=== PATIENT | female | born 1965 | race Caucasian/White ===

== ENCOUNTER 2022-01-21 07:21 | Inpatient (IN) | payer MEDICAID, SELFPAY ==
[2022-01-21 07:33] VITALS: BP 126/82; PULSE 76; RESP 18; TEMP 37.1; O2SAT 99; BMI 27.1
--- NOTE | 2022-01-21 07:45 | ED_ITS ---
Documented by User: IGNACIO Cortes 01/21/22 13:28 HPI - Skin/Abscess/Foreign Bdy General: Chief complaint: Skin/Abscess/Foreign Body Stated complaint: Atibiotics arent working, pain, red streaks Time Seen by Provider: 01/21/22 07:23 Source: patient and family Mode of arrival: ambulatory Limitations: no limitations History of Present Illness: Patient is a 56-year-old female with a history of hidradenitis suppurative here for complaints of a flare (redness, warmth, lucia n) to her right axilla. Patient states she normally takes topical Clindamycin as well as oral Doxycycline to prevent flares. She states this regimen has worked for a long time and states she has not had a flare in many years. She states she began feeling symptomatic several days ago. She was seen at [facility] and placed on oral Clindamycin and Rifampin. She has been on these medications for 48 hours and doesn't feel like they are helping. MD complaint: abscess/boil Onset (ago): day(s) Tetanus up to date: yes Location: RUE (R axillary) Severity: severe Severity scale (1-10): 10 Quality: burning and stabbing Pain Consistency: constant Relieving factors: none Associated symptoms: Reports chills; Deny fever(s), nausea or vomiting Treatments prior to arrival: antibiotic Review of Systems Const: Reports: chills; Denies: fever(s), body aches, fatigue or malaise Card: Denies: chest pain Resp: Denies: dyspnea GI: Denies: nausea or vomiting Musc: Denies: neck pain, back pain, extremity pain or joint pain Skin/Breast: Reports: other (inflammation/redness/warmth to R axilla) Neuro: Denies: headache(s), numbness in extremities, weakness in extremities or sensory changes Physical Exam Const: COMMON NORMALS: no acute distress, patient oriented x3, no limitations and alert GENERAL APPEARANCE: cooperative and other (tearful at times) ORIENTATION/CONSCIOUSNESS: Yes awake, Yes oriented to person, Yes oriented to place and Yes oriented to time HENMT: COMMON NORMALS: normocephalic and atraumatic HEAD & SCALP: normal to inspection, normocephalic and atraumatic Resp: COMMON NORMALS: normal respiratory effort and clear to auscultation bilaterally AUSCULTATION: clear to auscultation bilaterally Cardio: COMMON NORMALS: regular rate and regular rhythm RATE: regular rate RHYTHM: regular rhythm Extremity: COMMON NORMALS: normal to inspection GENERAL: Yes normal exam except as noted Neuro: COMMON NORMALS: patient oriented x3, moves all extremities, no focal mo tor deficits and no sensory deficits noted SENSORIUM/ORIENTATION: Yes alert, Yes oriented to person, Yes oriented to place and Yes oriented to time Skin: NARRATIVE SKIN EXAM: patient has severe/stage III HS findings to her bilateral axillary regions with rope like scarring; there is active severe inflammation, redness, and warmth involving her R axilla-no fluctuant regions noted, small amount of clear d rainage noted Course Consultations: Consultation #1: Dr. Morgan-will admit to his service, recommends continuing IV vancomycin at this time Vital Signs: Vital signs: Vital Signs Temperature 97.8 F 01/21/22 08:04 Pulse Rate 77 01/21/22 09:14 Respiratory Rate 16 01/21/22 09:14 Blood Pressure 145/98 01/21/22 09:14 Pulse Oximetry 96 01/21/22 09:14 MDM - Skin/Abscess/Foreign Bdy Medicial Decision Making Patient is a nice 56-year-old female who unfortunately suffers from severe hydradenitis suppurativa. She is here in regards to a flare to her right axillary region. She has been on oral clindamycin and rifampin without any clinical response/improvement. US of the area does show a complex mass most consistent with an abscess. This is most likely not amendable to I&D at this time secondary to the amount of chronic scar tissue present as well as the radiologist commenting on the thick debris material located within the mass. Patient will be admitted to general surgeon Dr. Morgan for IV antibiotics and will monitor clinical response. Lab Data : 01/21/22 07:50 01/21/22 07:50 Radiology Impressions Soft Tissue Ultrasound 01/21/22 08:10 IMPRESSION: Complex mass in the RIGHT axilla measures 2.4 x 3.3 cm, most consistent with an abscess. Alternatively would be a necrotic neoplastic mass or lymph node if the clinical presentation does not support abscess. Laboratory Results WBC 14.9 10^3/uL (4.0-10.0) H 01/21/22 07:50 RBC 4.33 10^6/uL (4.1-5.3) 01/21/22 07:50 Hgb 12.5 g/dL (11.5-15.3) 01/21/22 07:50 Hct 38.6 % (37.0-47.0) 01/21/22 07:50 MCV 89.1 fl (81-99) 01/21/22 07:50 MCH 28.9 pg (28.0-34.0) 01/21/22 07:50 MCHC 32.4 g/dL (30.0-36.0) 01/21/22 07:50 RDW 15.5 % (12.1-15.1) H 01/21/22 07:50 Plt Count 332 10^3/cmm (130-400) 01/21/22 07:50 MPV 10.4 fL (7.4-10.4) 01/21/22 07:50 Neut % (Auto) 74.6 % 01/21/22 07:50 Lymph % (Auto) 14.8 % 01/21/22 07:50 [place] % (Auto) 8.2 % 01/21/22 07:50 Eos % (Auto) 1.6 % 01/21/22 07:50 Baso % (Auto) 0.5 % 01/21/22 07:50 Neut # (Auto) 11.13 10^3/uL (1.8-7.7) H 01/21/22 07:50 Lymph # (Auto) 2.2 10^3/uL (0.8-4.8) 01/21/22 07:50 [place] # (Auto) 1.2 10^3/uL (0.2-0.9) H 01/21/22 07:50 Eos # (Auto) 0.2 10^3/uL (0.0-0.8) 01/21/22 07:50 Baso # (Auto) 0.1 10^3/uL (0.0-0.1) 01/21/22 07:50 Nucleated RBC % (auto) 0 % 01/21/22 07:50 Nucleated RBCs # 0.0 /100WBC 01/21/22 07:50 Sodium 140 mmol/L (136-145) 01/21/22 07:50 Potassium 3.9 mmol/L (3.5-5.1) 01/21/22 07:50 Chloride 105 mmol/L (98-107) 01/21/22 07:50 Carbon Dioxide 24 mmol/L (22-29) 01/21/22 07:50 Anion Gap 14.9 (5-19) 01/21/22 07:50 BUN 7 mg/dL (6-20) 01/21/22 07:50 Creatinine 0.4 mg/dL (0.5-0.9) L 01/21/22 07:50 GFR Calculation 166.3 mL/min (90-130) H 01/21/22 07:50 Glucose 116 mg/dL (65-115) H 01/21/22 07:50 Calculated Osmolality 289 mOsm/kg (285-295) 01/21/22 07:50 Calcium 9.7 mg/dL (8.5-10.5) 01/21/22 07:50 Total Bilirubin 0.8 mg/dL (0.15-1.2) 01/21/22 07:50 AST 18 U/L (0-32) 01/21/22 07:50 ALT 13 U/L (0-33) 01/21/22 07:50 Alkaline Phosphatase 88 IU/L (35-105) 01/21/22 07:50 C-Reactive Protein 42.3 mg/L (0.0-4.9) H 01/21/22 07:50 Total Protein 7.8 g/dL (6.6-8.7) 01/21/22 07:50 Albumin 4.3 g/dL (3.5-5.2) 01/21/22 07:50 Globulin 3.5 g/dL (1.3-4.6) 01/21/22 07:50 Discharge Plan Discharge Patient Disposition: Admitted As Inpatient Clinical Impression: Axillary hidradenitis suppurativa, Abscess of axilla, right Condition: Stable Coding Level of Care Code ED Seal Delivery Vehicle Team Technician for [facility] Fwd Exam Detailed Documented by User: Ravindra Parminder NatalybalwinderDO 01/21/22 13:49 HPI - Skin/Abscess/Foreign Bdy General: Chief complaint: Skin/Abscess/Foreign Body Stated complaint: Atibiotics arent working, pain, red streaks Time Seen by Provider: 01/21/22 07:23 Course Vital Signs: Vital signs: Vital Signs Temperature 97.8 F 01/21/22 08:04 Pulse Rate 77 01/21/22 09:14 Respiratory Rate 16 01/21/22 09:14 Blood Pressure 145/98 01/21/22 09:14 Pulse Oximetry 96 01/21/22 09:14 MDM - Skin/Abscess/Foreign Bdy Medicial Decision Making Patient is a nice 56-year-old female who unfortunately suffers from severe hydradenitis suppurativa. She is here in regards to a flare to her right axillary region. She has been on oral clindamycin and rifampin without any clinical response/improvement. US of the area does show a complex mass most con sistent with an abscess. This is most likely not amendable to I&D at this time secondary to the amount of chronic scar tissue present as well as the radiologist commenting on the thick debris material located within the mass. Patient will be admitted to general surgeon Dr. Morgan for IV antibiotics and will monitor clinical response. Patient initially seen by IGNACIO Cortes seen and evaluated the patient reviewed her history reviewed the case with Pippa Bond as well as reviewing the chart. History in the chart is consistent with what patient gave me. She has reddened inflamed exquisitely tender right axilla with lymphatic streaking. No purulent drainage no pointing. Ultrasound reviewed deep moderate to small sized abscess. Given her history we will go ahead and admit this chris with Pippa Morgan will take patient has primary white count is elevated will start on Levaquin and manage pain control. Orders written. Lab Data : 01/21/22 07:50 01/21/22 07:50 Radiology Impressions Soft Tissue Ultrasound 01/21/22 08:10 IMPRESSION: Complex mass in the RIGHT axilla measures 2.4 x 3.3 cm, most consistent with an abscess. Alternatively would be a necrotic neoplastic mass or lymph node if the clinical presentation does not support abscess. Laboratory Results WBC 14.9 10^3/uL (4.0-10.0) H 01/21/22 07:50 RBC 4.33 10^6/uL (4.1-5.3) 01/21/22 07:50 Hgb 12.5 g/dL (11.5-15.3) 01/21/22 07:50 Hct 38.6 % (37.0-47.0) 01/21/22 07:50 MCV 89.1 fl (81-99) 01/21/22 07:50 MCH 28.9 pg (28.0-34.0) 01/21/22 07:50 MCHC 32.4 g/dL (30.0-36.0) 01/21/22 07:50 RDW 15.5 % (12.1-15.1) H 01/21/22 07:50 Plt Count 332 10^3/cmm (130-400) 01/21/22 07:50 MPV 10.4 fL (7.4-10.4) 01/21/22 07:50 Neut % (Auto) 74.6 % 01/21/22 07:50 Lymph % (Auto) 14.8 % 01/21/22 07:50 [place] % (Auto) 8.2 % 01/21/22 07:50 Eos % (Auto) 1.6 % 01/21/22 07:50 Baso % (Auto) 0.5 % 01/21/22 07:50 Neut # (Auto) 11.13 10^3/uL (1.8-7.7) H 01/21/22 07:50 Lymph # (Auto) 2.2 10^3/uL (0.8-4.8) 01/21/22 07:50 [place] # (Auto) 1.2 10^3/uL (0.2-0.9) H 01/21/22 07:50 Eos # (Auto) 0.2 10^3/uL (0.0-0.8) 01/21/22 07:50 Baso # (Auto) 0.1 10^3/uL (0.0-0.1) 01/21/22 07:50 Nucleated RBC % (auto) 0 % 01/21/22 07:50 Nucleated RBCs # 0.0 /100WBC 01/21/22 07:50 Sodium 140 mmol/L (136-145) 01/21/22 07:50 Potassium 3.9 mmol/L (3.5-5.1) 01/21/22 07:50 Chloride 105 mmol/L (98-107) 01/21/22 07:50 Carbon Dioxide 24 mmol/L (22-29) 01/21/22 07:50 Anion Gap 14.9 (5-19) 01/21/22 07:50 BUN 7 mg/dL (6-20) 01/21/22 07:50 Creatinine 0.4 mg/dL (0.5-0.9) L 01/21/22 07:50 GFR Calculation 166.3 mL/min (90-130) H 01/21/22 07:50 Glucose 116 mg/dL (65-115) H 01/21/22 07:50 Calculated Osmolality 289 mOsm/kg (285-295) 01/21/22 07:50 Calcium 9.7 mg/dL (8.5-10.5) 01/21/22 07:50 Total Bilirubin 0.8 mg/dL (0.15-1.2) 01/21/22 07:50 AST 18 U/L (0-32) 01/21/22 07:50 ALT 13 U/L (0-33) 01/21/22 07:50 Alkaline Phosphatase 88 IU/L (35-105) 01/21/22 07:50 C-Reactive Protein 42.3 mg/L (0.0-4.9) H 01/21/22 07:50 Total Protein 7.8 g/dL (6.6-8.7) 01/21/22 07:50 Albumin 4.3 g/dL (3.5-5.2) 01/21/22 07:50 Globulin 3.5 g/dL (1.3-4.6) 01/21/22 07:50 Discharge Plan Discharge Patient Disposition: Admitted As Inpatient Clinical Impression: Axillary hidradenitis suppurativa, Abscess of axilla, right Condition: Stable Coding Level of Care Code ED Seal Delivery Vehicle Team Technician for [facility] Fwd Exam Detailed
[2022-01-21 08:04] VITALS: BP 145/98; PULSE 66; RESP 18; TEMP 36.6; O2SAT 96
--- NOTE | 2022-01-21 08:10 | US_ITS ---
WS: [id number] ULTRASOUND SOFT TISSUES RIGHT axilla. HISTORY: HS; R axillary inflammation/possible abscess COMPARISON: None available. TECHNIQUE: 2-D and color Doppler imaging is submitted. There is a large complex heterogeneous mass in the RIGHT axilla in the area of pain and discomfort. T hick wall mass with peripheral increased vascularity. Central liquefaction with low-level echoes. Thi s mass measures 2.4 x 3.3 cm. There is adjacent subcutaneous edema. US/US soft tissue/extremity [id number] IMPRESSION: Complex mass in the RIGHT axilla measures 2.4 x 3.3 cm, most consistent with a n abscess. Alternatively would be a necrotic neoplastic mass or lymph node if t he clinical presentation does not support abscess.
[2022-01-21 08:18] LABS: Basophils # 0.1 10^3/uL (0.0-0.1); Basophils % 0.5 %; Eosinophils # 0.2 10^3/uL (0.0-0.8); Eosinophils % 1.6 %; Hematocrit 38.6 % (37.0-47.0); Hemoglobin 12.5 g/dL (11.5-15.3); Lymphocytes # 2.2 10^3/uL (0.8-4.8); Lymphocytes % 14.8 %; Mean Corpuscular HGB Conc 32.4 g/dL (30.0-36.0); Mean Corpuscular Hemoglobin 28.9 pg (28.0-34.0); Mean Corpuscular Volume 89.1 fl (81-99); Mean Platelet Volume 10.4 fL (7.4-10.4); Monocytes # 1.2 10^3/uL (0.2-0.9); Monocytes % 8.2 %; Neutrophils # 11.13 10^3/uL (1.8-7.7); Neutrophils % 74.6 %; Nucleated Red Blood Cells % 0 %; Platelet Count 332 10^3/cmm (130-400); Red Blood Count 4.33 10^6/uL (4.1-5.3); Red Cell Distribution Width 15.5 % (12.1-15.1); White Blood Count 14.9 10^3/uL (4.0-10.0)
[2022-01-21] MEDS: vancomycin 1,000 MG in sodium chloride 0.9% 250 ML 250 MG IV ×2 (08:23→17:43)
[2022-01-21 08:29] VITALS: RESP 18; O2SAT 96
[2022-01-21] MEDS: HYDROmorphone 1 mg/mL INJ 1 mL 0.5 MG IVP (08:29)
[2022-01-21] MEDS: ondansetron 2 mg/ML SDV 2 mL 4 MG IVP (08:30)
[2022-01-21 08:33] LABS: Alanine Aminotransferase 13 U/L (0-33); Albumin Level 4.3 g/dL (3.5-5.2); Alkaline Phosphatase 88 IU/L (35-105); Anion Gap 14.9 (5-19); Aspartate Amino Transferase 18 U/L (0-32); Blood Urea Nitrogen 7 mg/dL (6-20); C Reactive Protein 42.3 mg/L (0.0-4.9); Calcium 9.7 mg/dL (8.5-10.5); Carbon Dioxide 24 mmol/L (22-29); Chloride 105 mmol/L (98-107); Globulin 3.5 g/dL (1.3-4.6); Glomerular Filtration Rate 166.3 mL/min (90-130); Glucose 116 mg/dL (65-115); Osmolality Calculated 289 mOsm/kg (285-295); Potassium 3.9 mmol/L (3.5-5.1); Sodium 140 mmol/L (136-145); Total Bilirubin 0.8 mg/dL (0.15-1.2); Total Protein 7.8 g/dL (6.6-8.7)
[2022-01-21 09:14] VITALS: BP 145/98; PULSE 77; RESP 16; O2SAT 96
--- NOTE | 2022-01-21 14:03 | ECG_ITS ---
[facility] Test Date: 2022-01-21 Pat Name: Chloe Álvarez Department: Room: Gender: Female Dwarf Tree Grower: : 1965 Requested By: Ravindra Zurita Order Number: [id number] Mane MD: Azael Hall M.D. Measurements Intervals [place] Rate: 80 P: 75 OK: 135 QRS: 72 QRSD: 77 T: 52 QT: 357 QTc: 412 Interpretive Statements SINUS RHYTHM WITH SINUS ARRHYTHMIA MODERATE ST DEPRESSION [0.05+ mV ST DEPRESSION] No previous ECG available for comparison Electronically Signed On 01-21-2022 19:00:57 CDT by Azael Hall M.D. [id number]
--- NOTE | 2022-01-21 15:08 | PC.NURSE ---
report to VARSHA Bowles
[2022-01-21 15:23] VITALS: BMI 27.1
[2022-01-21] MEDS: ketorolac 30 mg/mL INJ 15 MG IVP ×2 (16:12→21:54)
[2022-01-21] MEDS: sodium chloride 0.9% 1,000 ML 100 ML IV (16:15)
--- NOTE | 2022-01-21 17:21 | P.HP_ITS ---
Providers/Chief Complaint Admitting Physician: Ulysses Morgan MD Chief Complaint: Right axillary cellulitis and abscess History of Present Illness Chloe Álvarez is a 56 year old female who states that she has been dealing with recurrent cellulitis and abscess of bilateral axilla since the s. Patient has had multiple surgeries on both axilla for drainage of abscess. Patient states that few days ago she started having increasing pain redness and swelling in the right axilla and was started on oral clindamycin and rifampin but the redness continued to worsen and therefore she presented to the ER for further evaluation. An ultrasound the ER showed a 3 cm fluid collection. Patient denies any fevers or chills and she has not had any drainage so far. Review of Systems General: Reports: 10 or more systems reviewed and unremarkable except in HPI a nd below Medications/Allergies Home Medications Medication Instructions Recorded Confirmed Last Taken Type albuterol sulfate 2.5 mg INHALATION Q4H PRN 01/21/22 01/21/22 Unknown History albuterol sulfate 90 mcg/actuation 2 puff INHALATION Q4H PRN 01/21/22 01/21/22 Unknown History aerosol inhaler aspirin 81 mg tablet,delayed 81 mg PO DAILY 01/21/22 01/21/22 Unknown History release clindamycin HCl 300 mg capsule 300 mg PO BID@00,12 01/21/22 01/21/22 01/21/22 00:00 History diclofenac sodium 75 mg 75 mg PO BID@06,18 01/21/22 01/21/22 Unknown History tablet,delayed release doxycycline hyclate 100 mg tablet 100 mg PO BID 01/21/22 01/21/22 01/17/22 History see pharmacy comment ondansetron 8 mg disintegrating 8 mg PO Q8H PRN 01/21/22 01/21/22 01/21/22 00:00 History tablet oxycodone-acetaminophen 5 mg-325 1 tab PO Q6H PRN 01/21/22 01/21/22 01/21/22 08:00 History mg tablet 1/2 tab rifampin 300 mg capsule 300 mg PO BID@06,18 01/21/22 01/21/22 Unknown History Allergies Allergy/AdvReac Type Severity Reaction Status Date / Time morphine Allergy Unknown Verified 01/21/22 08:25 PFSH Acute PFSH: Surgical History (Updated 01/21/22 @ 17:23 by Ulysses Morgan MD) S/P tonsillectomy and adenoidectomy Vitals/I&O/Wt Last Vital Signs Temp 97.8 F 01/21/22 08:04 Pulse 77 01/21/22 09:14 Resp 16 01/21/22 09:14 BP 145/98 01/21/22 09:14 Pulse Ox 96 01/21/22 09:14 01/21/22 01/21/22 01/21/22 06:59 14:59 22:59 Intake Total 250 / 250 Balance 250 / 250 Weight last 48 hrs Weight 158 lb Weight 158 lb Physical Exam Narrative: HEENT: Normocephalic Eye: Sclera /conjunctiva normal Respiratory and chest: Bilateral clear breath sounds on auscultation Cardiovascular: Normal S1 and S2 heart sounds Abdomen: Soft to palpation Neurological: Oriented to place person and time Skin: Intact, right axilla: Cellulitis extending down the right chest wall with tenderness, multiple areas of induration, scarring., No obvious area of fluctuance or drainage noted. Left axilla: Extensive scarring and sinus tracts involving the entire axilla but no evidence of cellulitis or drainage Data : 01/21/22 07:50 01/21/22 07:50 Micro: Microbiology 01/21/22 10:35 Blood Culture - Preliminary Blood SPECIMEN COLLECTED 01/21/22 07:50 Blood Culture - Preliminary Blood SPECIMEN COLLECTED A&P Assessment and plan (1) Axillary hidradenitis suppurativa: 56-year-old female with longstanding history of bilateral axillary hidradenitis suppurativa who presents with cellulitis and a small 3 cm abscess in the right axilla. She is hemodynamically stable and her WBC is 14.9. She is afebrile. Admit to the hospital for observation Regular diet Repeat labs tomorrow a.m. IV vancomycin Warm compress Status: Acute Attestations Medical Necessity Statement*: Cellulitis right axilla requiring inpatient IV antibiotics due to failed outpatient oral antibiotic therapy Coding Level of Care Code Acute Brand Specialist for [facility] Fwd Diagnoses Axillary hidradenitis suppurativa L73.2
[2022-01-21] MEDS: HYDROcodone-acetaminophen 5-325 mg Tablet 1 TAB PO (19:35)
[2022-01-21 20:09] VITALS: BP 135/92; PULSE 86; RESP 18; TEMP 36.8; O2SAT 99
[2022-01-21 23:59] VITALS: BP 146/87; PULSE 82; RESP 17; TEMP 36.7; O2SAT 98
[2022-01-22] MEDS: vancomycin 1,000 MG in sodium chloride 0.9% 250 ML 250 MG IV ×3 (00:03→15:34)
[2022-01-22] MEDS: HYDROcodone-acetaminophen 5-325 mg Tablet 1 TAB PO (01:48)
[2022-01-22] MEDS: ketorolac 30 mg/mL INJ 15 MG IVP ×4 (03:27→21:50)
[2022-01-22 03:33] VITALS: BP 117/74; PULSE 81; RESP 17; TEMP 36.7; O2SAT 96
[2022-01-22 05:31] LABS: Basophils # 0.1 10^3/uL (0.0-0.1); Basophils % 0.5 %; Eosinophils # 0.3 10^3/uL (0.0-0.8); Eosinophils % 2.2 %; Hematocrit 33.5 % (37.0-47.0); Hemoglobin 10.3 g/dL (11.5-15.3); Mean Corpuscular HGB Conc 30.7 g/dL (30.0-36.0); Mean Corpuscular Hemoglobin 28.7 pg (28.0-34.0); Mean Corpuscular Volume 93.3 fl (81-99); Mean Platelet Volume 10.3 fL (7.4-10.4); Monocytes # 1.1 10^3/uL (0.2-0.9); Neutrophils # 7.44 10^3/uL (1.8-7.7); Nucleated Red Blood Cells % 0 %; Platelet Count 298 10^3/cmm (130-400); Red Blood Count 3.59 10^6/uL (4.1-5.3); Red Cell Distribution Width 15.6 % (12.1-15.1); White Blood Count 11.8 10^3/uL (4.0-10.0)
[2022-01-22 06:00] LABS: Blood Urea Nitrogen 6 mg/dL (6-20); Carbon Dioxide 23 mmol/L (22-29); Chloride 109 mmol/L (98-107); Glomerular Filtration Rate 166.3 mL/min (90-130); Glucose 102 mg/dL (65-115); Osmolality Calculated 294 mOsm/kg (285-295); Sodium 143 mmol/L (136-145)
[2022-01-22 07:56] VITALS: BP 152/95; PULSE 92; RESP 14; TEMP 36.8; O2SAT 98
[2022-01-22] MEDS: sodium chloride 0.9% 1,000 ML 100 ML IV ×2 (08:24→15:37)
[2022-01-22 12:00] VITALS: BP 142/91; PULSE 87; RESP 12; O2SAT 98
--- NOTE | 2022-01-22 13:11 | PM.PN ---
Subjective Subjective: Patient feels a lot better, had purulent drainage from the axilla last night. She has been afebrile Vitals/I&O/Wt Last Vital Signs Temp 98.3 F 01/22/22 07:56 Pulse 92 01/22/22 07:56 Resp 14 01/22/22 07:56 BP 152/95 01/22/22 07:56 Pulse Ox 98 01/22/22 07:56 01/21/22 01/22/22 01/22/22 22:59 06:59 14:59 Intake Total 980 / 1230 250 / 1230 1250 / 1250 Balance 980 / 1230 250 / 1230 1250 / 1250 Weight last 48 hrs Weight 158 lb Weight 158 lb Physical Exam Narrative: right axilla: Drainage of purulent fluid but the cellulitis appears to have increased Data : 01/22/22 04:55 01/22/22 04:55 Micro: Microbiology 01/21/22 10:35 Blood Culture - Preliminary Blood NEGATIVE TO DATE 01/21/22 07:50 Blood Culture - Preliminary Blood NEGATIVE TO DATE A&P Assessment and plan (1) Axillary hidradenitis suppurativa: 56-year-old female with longstanding history of bilateral axillary hidradenitis suppurativa who presents with cellulitis and a small 3 cm abscess in the right axilla. She is hemodynamically stable and her WBC is 14.9. She is afebrile. Admit to the hospital for observation Regular diet, n.p.o. after midnight Repeat labs tomorrow a.m. Obtain gram stain and wound cultures today IV vancomycin, add clindamycin 300 mg IV 3 times daily Warm compress Status: Acute Attestations Medical Necessity Statement*: Patient will need 1 more of hospital stay for IV antibiotics since she failed outpatient oral antibiotic therapy Coding Level of Care Code Acute Route Delivery Clerk for [facility] Marissa Diagnoses Axillary hidradenitis suppurativa L73.2
[2022-01-22 15:45] LABS: Vancomycin Trough 16.8 ug/mL (10-15)
[2022-01-22 16:00] VITALS: BP 124/75; PULSE 81; RESP 14; TEMP 36.6; O2SAT 97
[2022-01-22 20:00] VITALS: BP 123/81; PULSE 83; RESP 19; TEMP 36.8; O2SAT 96
[2022-01-23] VITALS (11 sets, daily range): BP systolic 108–167; BP diastolic 64–96; PULSE 77–97; RESP 12–19; TEMP 36.2–37.2; O2SAT 94–98
[2022-01-23] MEDS: vancomycin 1,000 MG in sodium chloride 0.9% 250 ML 250 MG IV ×3 (00:01→15:58)
--- NOTE | 2022-01-23 00:45 | ECG_ITS ---
[facility] Test Date: 2022-01-22 Pat Name: Chloe Álvarez Department: Room: 255 Gender: Female Knuckle Bender: : 1965 Requested By: Kristal Ovalle Order Number: [id number] Mane MD: Josie Velasco M.D. Measurements Intervals [place] Rate: P: AK: QRS: QRSD: T: QT: QTc: Interpretive Statements SINUS RHYTHM WITH PAC'S/BLOCKED PAC'S WARNING: DATA QUALITY MAY AFFECT INTERPRETATION Compared to ECG 01/21/2022 07:57:01 Sinus arrhythmia no longer present ST (T wave) deviation no longer present Electronically Signed On 01-24-2022 6:10:26 CDT by Josie Velasco M.D. [id number]
--- NOTE | 2022-01-23 01:05 | PC.NURSE ---
Patient refused the x1 15mg ivp torodol dose that was ordered for report of intermittent sharp right sided chest pain. Patient states that she doesn't currently feel the chest pain so she does not want the medication. Patient educated on medication and pain, verbalized understanding but refused dose.
[2022-01-23] MEDS: sodium chloride 0.9% 1,000 ML 100 ML IV ×3 (01:51→23:04)
[2022-01-23 02:30] LABS: Troponin T (5th) Once 6 ng/L (0-10)
--- NOTE | 2022-01-23 04:04 | PC.NURSE ---
Patient refused scheduled dose of Ketorolac, patient states she is not in pain at this time and does not want it.
--- NOTE | 2022-01-23 06:10 | PC.SOCIAL ---
Late Entry for 01/22/2022 pt signed [employer] application documents for auth customer response representative.These were sent to Maosn Gold via email. Patient was appreciative.
--- NOTE | 2022-01-23 08:51 | P.PN_ITS ---
Subjective Subjective: Patient continues to have drainage and erythema and slight drainage but has spread further. She is afebrile Vitals/I&O/Wt Last Vital Signs Temp 98.3 F 01/23/22 04:00 Pulse 96 01/23/22 04:00 Resp 17 01/23/22 04:00 BP 108/64 01/23/22 04:00 Pulse Ox 94 01/23/22 04:00 01/22/22 01/23/22 01/23/22 22:59 06:59 14:59 Intake Total 2031.667 / 5071.667 1450 / 5071.667 250 / 250 Balance 2031.667 / 5071.667 1450 / 5071.667 250 / 250 Weight last 48 hrs Weight 174 lb 12.8 oz Weight 158 lb Physical Exam Narrative: right axilla: Drainage of purulent fluid but the cellulitis appears to have spread further Data : 01/22/22 04:55 01/22/22 04:55 Micro: Microbiology 01/21/22 10:35 Blood Culture - Preliminary Blood NEGATIVE TO DATE 01/21/22 07:50 Blood Culture - Preliminary Blood NEGATIVE TO DATE A&P Assessment and plan (1) Abscess of axilla, right: Status: Acute (2) Axillary hidradenitis suppurativa: 56-year-old female with longstanding history of bilateral axillary hidradenitis suppurativa who presents with cellulitis has now developed a draining abscess with further spread of cellulitis in spite of being on IV vancomycin and imipenem Plan for incision and drainage of abscess under MAC today Procedure, risks, benefits and alternatives have been discussed with the patient who wishes to proceed with surgery. Continue IV vancomycin and imipenem Warm compress Status: Acute Attestations Medical Necessity Statement*: Incision and drainage of abscess Coding Level of Care Code Acute Muffle Operator for [facility] Diagnoses Abscess of axilla, right L02.411 Axillary hidradenitis suppurativa L73.2
--- NOTE | 2022-01-23 10:23 | ANES.PREANE2 ---
Pre-Anesthetic Assessment Height/Weight: Height 1.63 m Weight 79.288 kg Temp Pulse Resp BP Pulse Ox 99.0 F 80 13 148/78 96 01/23/22 08:00 01/23/22 08:00 01/23/22 08:00 01/23/22 08:00 01/23/22 08:00 Preop Diagnosis: Right axillary abscess Operation Date: 01/23/22 14:45 Proposed Procedures p Incision And Drainage Right axillary abscess(Right) - Ulysses Morgan MD Familial anesthetic complications: None Was Beta Bacilio taken within 24 hours: N/A Was Clonidine taken within 24 hours: N/A Social No alcohol and No tobacco Exam alert, oriented x 3 and regular rate & rhythm Airway Submandibular: within normal limits Cervical ROM: within normal limits Mallampati: Class II Dentition: loose Comments: Comments: Poor dentitioin, multiple loose Pulmonary Chronic Obstructive Pulmonary Disease Metabolic Morbid Obesity Anesthetic Plan ASA status: 2 Anesthesia: Choice Medications/Allergies Home Medications Medication Instructions Recorded Confirmed Last Taken Type albuterol sulfate 2.5 mg INHALATION Q4H PRN 01/21/22 01/21/22 Unknown History albuterol sulfate 90 mcg/actuation 2 puff INHALATION Q4H PRN 01/21/22 01/21/22 Unknown History aerosol inhaler aspirin 81 mg tablet,delayed 81 mg PO DAILY 01/21/22 01/21/22 Unknown History release clindamycin HCl 300 mg capsule 300 mg PO BID@00,12 01/21/22 01/21/22 01/21/22 00:00 History diclofenac sodium 75 mg 75 mg PO BID@06,18 01/21/22 01/21/22 Unknown History tablet,delayed release doxycycline hyclate 100 mg tablet 100 mg PO BID 01/21/22 01/21/22 01/17/22 History see pharmacy comment ondansetron 8 mg disintegrating 8 mg PO Q8H PRN 01/21/22 01/21/22 01/21/22 00:00 History tablet oxycodone-acetaminophen 5 mg-325 1 tab PO Q6H PRN 01/21/22 01/21/22 01/21/22 08:00 History mg tablet 1/2 tab rifampin 300 mg capsule 300 mg PO BID@06,18 01/21/22 01/21/22 Unknown History Allergies Allergy/AdvReac Type Severity Reaction Status Date / Time morphine Allergy Unknown Verified 01/21/22 08:25 Current Medications Generic Name Dose Route Start Last Admin Trade Name Freq PRN Reason Stop Dose Admin Hydrocodone Bitart/Acetaminophen 1 tab 01/21/22 15:53 01/22/22 01:48 Hydrocodone-Acetaminophen 5-325 Mg Tablet PO 1 tab Q6H PRN Administration MODERATE PAIN Sodium Chloride 1,000 mls @ 100 mls/hr 01/21/22 15:18 01/23/22 01:51 Sodium Chloride 0.9% IV 100 mls/hr .Q10H JANI Administration Vancomycin HCl 1,000 mg/ 250 mls @ 250 mls/hr 01/21/22 16:30 01/23/22 08:41 Sodium Chloride IV Infused Q8H JANI Infusion Protocol Imipenem/Cilastatin Sodium 500 100 mls @ 200 mls/hr 01/22/22 13:15 01/23/22 06:53 mg/ Sodium Chloride IV Infused Q6H JANI Infusion Protocol Ketorolac Tromethamine 15 mg 01/21/22 16:00 01/23/22 09:08 Ketorolac 30 Mg/Ml Inj IVP 01/26/22 15:59 Not Given Q6H JANI PFSH Anesthesia Surgical History (Updated 01/21/22 @ 17:23 by Ulysses Morgan MD) S/P tonsillectomy and adenoidectomy Data Anesthesia : 01/22/22 04:55 01/22/22 04:55 Short CBC 01/22/22 Range/Units 04:55 WBC 11.8 H (4.0-10.0) 10^3/uL Hgb 10.3 L (11.5-15.3) g/dL Hct 33.5 L (37.0-47.0) % MCV 93.3 (81-99) fl Plt Count 298 (130-400) 10^3/cmm Neut % (Auto) 63.0 % Neut # (Auto) 7.44 (1.8-7.7) 10^3/uL BMP 01/22/22 04:55 Sodium 143 Potassium 4.0 Chloride 109 H Carbon Dioxide 23 BUN 6 Creatinine 0.4 L Glucose 102 Calcium 9.0 Cardiac Enzymes 01/23/22 Range/Units 01:32 Troponin T Gen 5 ng/L 6 (0-10) ng/L Microbiology 01/22/22 15:45 Gram Stain - Final Axilla 01/21/22 10:35 Blood Culture - Preliminary Blood NEGATIVE TO DATE 01/21/22 07:50 Blood Culture - Preliminary Blood NEGATIVE TO DATE Cardiac Studies: No Data to Display
[2022-01-23] MEDS: sodium chloride 0.9% 1,000 ML 30 ML IV (10:35)
[2022-01-23] MEDS: lidocaine 2% INJ 20 mL INJECTION (11:06)
--- NOTE | 2022-01-23 11:32 | PM.OP ---
Operative Report Date of procedure: January 23, 2022 Pre-op diagnosis: 1. Right axillary abscess 2. Hidradenitis suppurativa Post-op diagnosis: same Procedure done: Incision and drainage of right axillary abscess Specimens removed/disposition: Aerobic and anaerobic wound cultures Abscess wall Surgeon: Ulysses Morgan Anesthesia: MAC Condition: stable Disposition: PACU Procedure: The patient was taken to the operating room and the right axilla was prepped and draped in a sterile manner. She is currently on therapeutic IV antibiotics. Using a 15 blade a 5 cm incision was made at the site of fluctuance by extending the existing site of drainage. There was drainage of pus and loculations were taken down bluntly. Aerobic and anaerobic cultures were obtained. A piece of the abscess wall was sent for pathology. Hemostasis was ensured with cautery. The wound was irrigated with saline and packed with Kerlix gauze soaked in 2% lidocaine with 0.25% Marcaine. Sterile dressings were applied and the patient was transferred to recovery room in stable condition.
--- NOTE | 2022-01-23 14:58 | ANE.PACU2 ---
Inpatient post-anesthesia follow up: Airway intact: Yes Vital signs: Temperature 97.1 F Pulse Rate 77 Respiratory Rate 18 Blood Pressure 152/81 Pulse Oximetry 97 Oxygen Delivery Me thod Room Air Oxygen Flow Rate 6 Fraction of Inspir ed Oxygen Hydration adequate: Yes Nausea and vomiting: No Pain level: 2 Mental status: Baseline
[2022-01-23] MEDS: ketorolac 30 mg/mL INJ 15 MG IVP (16:00)
[2022-01-23] MEDS: HYDROcodone-acetaminophen 5-325 mg Tablet 1 TAB PO (19:46)
[2022-01-24] VITALS (8 sets, daily range): BP systolic 113–151; BP diastolic 76–95; PULSE 74–91; RESP 16–18; TEMP 36.6–36.9; O2SAT 95–98
[2022-01-24] MEDS: vancomycin 1,000 MG in sodium chloride 0.9% 250 ML 250 MG IV ×3 (00:25→15:27)
[2022-01-24] MEDS: HYDROcodone-acetaminophen 5-325 mg Tablet 1 TAB PO ×3 (03:48→20:45)
--- NOTE | 2022-01-24 03:49 | PC.NURSE ---
Patient requested pain pill, when informed that it was almost time for her scheduled dose of torodol, patient stated she did not want to take the iv pain medication and would rather have a prn hydrocodone/apap. Patient educated on both medications and verbalized understanding. Patient given prn medication and scheduled medication not given per patient request/refusal.
[2022-01-24 05:23] LABS: Basophils # 0.1 10^3/uL (0.0-0.1); Basophils % 0.9 %; Eosinophils # 0.4 10^3/uL (0.0-0.8); Eosinophils % 3.9 %; Hematocrit 33.2 % (37.0-47.0); Hemoglobin 10.4 g/dL (11.5-15.3); Lymphocytes # 2.8 10^3/uL (0.8-4.8); Lymphocytes % 29.3 %; Mean Corpuscular HGB Conc 31.3 g/dL (30.0-36.0); Mean Corpuscular Hemoglobin 28.7 pg (28.0-34.0); Mean Corpuscular Volume 91.5 fl (81-99); Mean Platelet Volume 9.8 fL (7.4-10.4); Monocytes # 0.9 10^3/uL (0.2-0.9); Monocytes % 9.4 %; Neutrophils # 5.29 10^3/uL (1.8-7.7); Neutrophils % 56.2 %; Nucleated Red Blood Cells % 0 %; Platelet Count 287 10^3/cmm (130-400); Red Blood Count 3.63 10^6/uL (4.1-5.3); Red Cell Distribution Width 15.5 % (12.1-15.1); White Blood Count 9.4 10^3/uL (4.0-10.0)
--- NOTE | 2022-01-24 05:31 | NUR.SHIFT ---
Up ad dafne in room without difficulty. Dressing placed by on 01/23/22 to right axilla remains dry and intact. Pain well controlled with PO medication. Patient declined all IV pain medication. IV antibiotics infused through left forearm IV which is patent and intact infusing NS at 100ml/hr. Vital signs stable this shift, afebrile.
[2022-01-24 05:57] LABS: Anion Gap 14.5 (5-19); Blood Urea Nitrogen 6 mg/dL (6-20); Calcium 8.1 mg/dL (8.5-10.5); Carbon Dioxide 21 mmol/L (22-29); Chloride 108 mmol/L (98-107); Glomerular Filtration Rate 231.8 mL/min (90-130); Glucose 87 mg/dL (65-115); Osmolality Calculated 287 mOsm/kg (285-295); Potassium 3.5 mmol/L (3.5-5.1); Sodium 140 mmol/L (136-145)
[2022-01-24] MEDS: sodium chloride 0.9% 1,000 ML 100 ML IV (08:23)
[2022-01-24] MEDS: aspirin 81 mg EC Tablet PO (09:23)
--- NOTE | 2022-01-24 11:00 | PC.CHAP ---
Pastoral Care Encounter/Spiritual Assessment Type of Contact [] Declined information and referral director visit [] Patient/Family/Request visit [] Outpatient visit [] Follow-up visit [] Physician referral [] Code/Alert [x] Routine visit [] Staff referral [] Actively dying [] Patient sleeping [] Family support [] [] Out of room [] Palliative care [] [] Receiving care in room [] Pre-surgical visit [] Trauma [] Long length of stay [] ICU visit [] Other: Relational/Emotional Strength [] Patient feels connected with others/family/visitors/staff [] Distress [] Loneliness/isolation [] Abandonment Spirituality of Patient [x] Person of Mindy [x] Attends Islam of their Mindy [x] Believes in Prayer [] Reads Bible or Methodist materials [] There are Spiritual issues to be addressed Printing Pressman Interventions [x] Prayer [x] Active listening [x] Non-anxious presence [] Spiritual/emotional support [] Crisis/trauma care [] Spiritual counseling [] Bereavement support [] Provided bereavement packet [] Provided Bible/devotional materials [] Provided toy/stuffed animal, coloring book to patient or family member [] Provided Communion [] Anointing/Lind[place] [] Salvation [x] Completed spiritual assessment [] Other: Impact on Illness or Injury [] Angry [] Fearful [] Anxious [] Often cries [] Exhaustion [] Unable to work [] Unable to attend orthodoxy [] Unable to walk/stand [] Unable to read [] Unable to drive [] Unable to eat/drink [] Unable to sleep [] Unable to be with family [] Patient intubated [] Other: Summary Time spent with patient 10 min
--- NOTE | 2022-01-24 11:50 | PM.PN ---
Subjective Subjective: patient did well overnight but had severe pain with dressig change even though she had [place] and Toradol Vitals/I&O/Wt Last Vital Signs Temp 97.9 F 01/24/22 11:30 Pulse 83 01/24/22 11:30 Resp 17 01/24/22 11:30 BP 145/93 01/24/22 11:30 Pulse Ox 97 01/24/22 11:30 01/23/22 01/24/22 01/24/22 22:59 06:59 14:59 Intake Total 1590 / 5304.5 1890 / 5304.5 1301.667 / 1301.667 Balance 1590 / 5304.5 1890 / 5304.5 1301.667 / 1301.667 Weight last 48 hrs Weight 177 lb 9.6 oz Weight 174 lb 12.8 oz Physical Exam Narrative: Right axillary wound: Erythema is improved, wound appears to have no significant necrotic tissue Data : 01/24/22 04:51 01/24/22 04:51 Micro: Microbiology 01/23/22 11:01 Gram Stain - Final Axilla Abscess Culture - Preliminary 01/22/22 15:45 Gram Stain - Final Axilla A&P Assessment and plan (1) Status post incision and drainage: 56-year-old female status post incision and drainage of right axillary abscess, had significant pain with dressing change. WBC is 9.4. Patient is afebrile. Patient does not have insurance and therefore cannot obtain home health. Her is unable to do dressing change at home. Continue IV antibiotics Ideally she should follow-up with wound care on discharge, she will again have an issue since she does not have insurance Awaiting wound cultures DC IV fluids Ambulate ad dafne. Lovenox for DVT prophylaxis Wet-to-dry daily dressing change Hopefully patient can be discharged home in the next 24 to 48 hours Status: Acute Attestations Medical Necessity Statement*: right axillary abscess requiring IV antibiotics and pain control Coding Level of Care Code Acute Log Handling Equipment Operator for Robinson Ann Diagnoses Status post incision and drainage Z98.890
--- NOTE | 2022-01-24 12:29 | PC.NURSE ---
Called to room to assist with ultrasound guided IV insertion. Attempted IV insertion to L AC without US. Pt tensed and jerked causing unsuccessful iv insertion. Using ultrasound, attempted 2nd IV insertion to LARA. Pt tensed once again and caused unsuccessful insertion attempt. This nurse moved the tourniquet higher on pt arm and pt c/o that it was pinching her. Tourniquet readjusted and pt became upset about tourniquet placement. This nurse placed L hand on her shoulder for therapeutic, non verbal communication to encourage her through process and instruct pt to attempt to relax and remain still. Pt the yelled at this nurse stating don't you manhandle me . Pt then yelled for to come into room. Pt also began yelling at this nurse, ordering the nurse to just do what you're told . This nurse then attempted to locate vein in hand with tourniquet with no success. Informed pt and family that the primary nurse would be notified and someone else would be consulted for IV placement. Notified charge nurse of need for placement and reported situation.
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
--- NOTE | 2022-01-24 23:20 | PC.NURSE ---
Pain 0 per FLACC scale as patient was resting in bed with eyes closed upon nurse entrance into room. Patient arouse and denies any needs at this time.
[2022-01-25] VITALS (7 sets, daily range): BP systolic 126–144; BP diastolic 73–87; PULSE 71–84; RESP 16–20; TEMP 36.7–36.9; O2SAT 95–98
--- NOTE | 2022-01-25 01:16 | PC.NURSE ---
Vancomycin Call placed to pharmacy regarding Vanc Trough needed prior to administering Vancomycin dose. Pharmacist Tami verified and instructed this nurse to administer current dose and an order for a Vanc trough will be placed to be drawn prior to next Vanc dose.
[2022-01-25] MEDS: vancomycin 1,000 MG in sodium chloride 0.9% 250 ML 250 MG IV ×3 (01:28→16:46)
--- NOTE | 2022-01-25 01:31 | PC.NURSE ---
Patient arouse and provided name and prior to Vancomycin administration. Left AC IV flushed with 10 ml NS and Vancomycin administration started.
[2022-01-25] MEDS: HYDROcodone-acetaminophen 5-325 mg Tablet 1 TAB PO ×3 (02:35→17:55)
[2022-01-25] MEDS: sodium chloride 0.9% (100 ml) 100 ML 25 ML (07:00)
[2022-01-25] MEDS: aspirin 81 mg EC Tablet PO (07:59)
[2022-01-25 08:13] LABS: Vancomycin Trough 17.4 ug/mL (10-15)
[2022-01-25] MEDS: ketorolac 30 mg/mL INJ 15 MG IVP (10:49)
--- NOTE | 2022-01-25 11:18 | P.PN_ITS ---
Subjective Subjective: Patient feels better, dressing changed today, no fevers or chills Medications: Reviewed: Yes Vitals/I&O/Wt Last Vital Signs Temp 98.3 F 01/25/22 07:36 Pulse 76 01/25/22 07:36 Resp 16 01/25/22 08:00 BP 131/84 01/25/22 07:36 Pulse Ox 96 01/25/22 08:00 01/24/22 01/25/22 01/25/22 22:59 06:59 14:59 Intake Total 1443.333 / 3895.000 1050 / 3895.000 690 / 690 Balance 1443.333 / 3895.000 1050 / 3895.000 690 / 690 Weight last 48 hrs Weight 176 lb 14.4 oz Weight 177 lb 9.6 oz Physical Exam Narrative: Right axillary wound: Erythema is improved, wound appears to have no significant necrotic tissue Data : 01/24/22 04:51 01/24/22 04:51 Micro: Microbiology 01/22/22 15:45 Gram Stain - Final Axilla Wound Culture - Preliminary 01/23/22 11:01 Gram Stain - Final Axilla Anaerobic Culture - Preliminary Abscess Culture - Preliminary A&P Assessment and plan (1) Status post incision and drainage: 56-year-old female status post incision and drainage of right axillary abscess, had significant pain with dressing change. WBC is 9.4. Patient is afebrile. Patient does not have insurance and therefore cannot obtain home health. Her is unable to do dressing change at home. Continue IV antibiotics Patient hopefully can go home tomorrow since dressing changes will be performed a GI Lab from Thursday Awaiting wound cultures Ambulate ad dafne. Wet-to-dry daily dressing change Hopefully patient can be discharged home in the next 24 to 48 hours Status: Acute Attestations Medical Necessity Statement*: 56-year-old female requiring 1 more night of hospital stay for wound care and dressing change Coding Level of Care Code Acute Financial Controller for Jackieg Fwruiz Diagnoses Status post incision and drainage Z98.890
[2022-01-26] VITALS: BP 130/85; PULSE 83; RESP 18; TEMP 37; O2SAT 96
[2022-01-26] MEDS: HYDROcodone-acetaminophen 5-325 mg Tablet 1 TAB PO ×3 (00:19→12:45)
[2022-01-26] MEDS: vancomycin 1,000 MG in sodium chloride 0.9% 250 ML 250 MG IV ×2 (00:19→08:47)
[2022-01-26 04:00] VITALS: BP 132/81; PULSE 84; RESP 18; TEMP 36.9; O2SAT 96
[2022-01-26 07:18] VITALS: BP 115/77; PULSE 77; RESP 16; TEMP 36.7; O2SAT 95
[2022-01-26 07:47] VITALS: PULSE 92; RESP 16; O2SAT 98
[2022-01-26] MEDS: aspirin 81 mg EC Tablet PO (08:48)
[2022-01-26 11:56] VITALS: BP 119/71; PULSE 79; RESP 18; O2SAT 96
[2022-01-26] MEDS: ketorolac 30 mg/mL INJ 15 MG IVP (12:07)
--- NOTE | 2022-01-26 12:44 | PM.PN ---
Subjective Subjective: Patient has been tolerating dressing change, afebrile, redness is improved Vitals/I&O/Wt Last Vital Signs Temp 98.1 F 01/26/22 07:18 Pulse 79 01/26/22 11:56 Resp 18 01/26/22 11:56 BP 119/71 01/26/22 11:56 Pulse Ox 96 01/26/22 11:56 01/25/22 01/26/22 01/26/22 22:59 06:59 14:59 Intake Total 830 / 2330 470 / 2330 830 / 830 Balance 830 / 2330 470 / 2330 830 / 830 Weight last 48 hrs Weight 176 lb 14.4 oz Physical Exam Narrative: Right axillary wound: Erythema is improved, wound appears to have no significant necrotic tissue Data : 01/24/22 04:51 01/24/22 04:51 Micro: Microbiology 01/23/22 11:01 Gram Stain - Final Axilla Anaerobic Culture - Preliminary Abscess Culture - Final 01/21/22 10:35 Blood Culture - Final Blood NO GROWTH AFTER 5 DAYS 01/21/22 07:50 Blood Culture - Final Blood NO GROWTH AFTER 5 DAYS 01/22/22 15:45 Gram Stain - Final Axilla Wound Culture - Preliminary A&P Assessment and plan (1) Status post incision and drainage: 56-year-old female status post incision and drainage of right axillary abscess, had significant pain with dressing change. WBC is 9.4. Patient is afebrile. Patient does not have insurance and therefore cannot obtain home health. Her is unable to do dressing change at home. SD home today Status: Acute Attestations Medical Necessity Statement*: SD home today Coding Level of Care Code Acute Life Skills Teacher for Jackieg Fwd Diagnoses Status post incision and drainage Z98.890
--- NOTE | 2022-01-26 12:45 | PM.DCS ---
Discharge Providers Date of Admission: 01/23/22 10:35 Date of Discharge: January 26, 2022 Attending Provider at Admission: Ulysses Morgan MD Attending Provider at Discharge: Ulysses Morgan MD Diagnoses at Discharge Discharge Diagnosis (1) Status post incision and drainage: Status: Acute Permanent problem details: Right axilla Reason for Visit Reason for Visit: Right axillary cellulitis and abscess Hospital Course Hospital Course Chloe Álvarez is a 56 year old female who states that she has been dealing with recurrent cellulitis and abscess of bilateral axilla since the s.? Patient has had multiple surgeries on both axilla for drainage of abscess.? Patient states that few days ago she started having increasing pain redness and swelling in the right axilla and was started on oral clindamycin and rifampin but the redness continued to worsen and therefore she presented to the ER for further evaluation.? An ultrasound the ER showed a 3 cm fluid collection.? Patient denies any fevers or chills and she has not had any drainage so far. Patient was subsequently admitted to the hospital for IV antibiotics and underwent incision and drainage of right axillary abscess on 01/23/2022. At time of discharge patient was tolerating daily dressing change, erythema had resolved and she was afebrile. Her blood cultures did not show any growth and therefore she was continued on clindamycin and rifampin that she was taking prior to hospitalization. Patient will undergo daily dressing change in GI Lab since is uncomfortable with doing dressing changes. Discharge Data Studies Completed and Pending Completed Studies During Hospitalization Category Date Time Status US soft tissue/extremity 61498 Urgent Ultrasound 01/21/22 08:10 Completed Pending at discharge Category Date Time Status Abscess Culture and Gram Stain Routine Lab 01/23/22 11:01 Results Anaerobic Culture Routine Lab 01/23/22 11:01 Results Wound Culture and Gram Stain Routine Lab 01/22/22 15:45 Results Pathology: Surgical [PTH] Routine Pth 01/23/22 11:11 Received Radiology Impressions Soft Tissue Ultrasound 01/21/22 08:10 IMPRESSION: Complex mass in the RIGHT axilla measures 2.4 x 3.3 cm, most consistent with an abscess. Alternatively would be a necrotic neoplastic mass or lymph node if the clinical presentation does not support abscess. Laboratory Results WBC 9.4 10^3/uL (4.0-10.0) 01/24/22 04:51 RBC 3.63 10^6/uL (4.1-5.3) L 01/24/22 04:51 Hgb 10.4 g/dL (11.5-15.3) L 01/24/22 04:51 Hct 33.2 % (37.0-47.0) L 01/24/22 04:51 MCV 91.5 fl (81-99) 01/24/22 04:51 MCH 28.7 pg (28.0-34.0) 01/24/22 04:51 MCHC 31.3 g/dL (30.0-36.0) 01/24/22 04:51 RDW 15.5 % (12.1-15.1) H 01/24/22 04:51 Plt Count 287 10^3/cmm (130-400) 01/24/22 04:51 MPV 9.8 fL (7.4-10.4) 01/24/22 04:51 Neut % (Auto) 56.2 % 01/24/22 04:51 Lymph % (Auto) 29.3 % 01/24/22 04:51 [place] % (Auto) 9.4 % 01/24/22 04:51 Eos % (Auto) 3.9 % 01/24/22 04:51 Baso % (Auto) 0.9 % 01/24/22 04:51 Neut # (Auto) 5.29 10^3/uL (1.8-7.7) 01/24/22 04:51 Lymph # (Auto) 2.8 10^3/uL (0.8-4.8) 01/24/22 04:51 [place] # (Auto) 0.9 10^3/uL (0.2-0.9) 01/24/22 04:51 Eos # (Auto) 0.4 10^3/uL (0.0-0.8) 01/24/22 04:51 Baso # (Auto) 0.1 10^3/uL (0.0-0.1) 01/24/22 04:51 Nucleated RBC % (auto) 0 % 01/24/22 04:51 Nucleated RBCs # 0.0 /100WBC 01/24/22 04:51 Sodium 140 mmol/L (136-145) 01/24/22 04:51 Potassium 3.5 mmol/L (3.5-5.1) 01/24/22 04:51 Chloride 108 mmol/L (98-107) H 01/24/22 04:51 Carbon Dioxide 21 mmol/L (22-29) L 01/24/22 04:51 Anion Gap 14.5 (5-19) 01/24/22 04:51 BUN 6 mg/dL (6-20) 01/24/22 04:51 Creatinine 0.3 mg/dL (0.5-0.9) L 01/24/22 04:51 GFR Calculation 231.8 mL/min (90-130) H 01/24/22 04:51 Glucose 87 mg/dL (65-115) 01/24/22 04:51 Calculated Osmolality 287 mOsm/kg (285-295) 01/24/22 04:51 Calcium 8.1 mg/dL (8.5-10.5) L 01/24/22 04:51 Total Bilirubin 0.8 mg/dL (0.15-1.2) 01/21/22 07:50 AST 18 U/L (0-32) 01/21/22 07:50 ALT 13 U/L (0-33) 01/21/22 07:50 Alkaline Phosphatase 88 IU/L (35-105) 01/21/22 07:50 Troponin T Gen 5 ng/L 6 ng/L (0-10) 01/23/22 01:32 C-Reactive Protein 42.3 mg/L (0.0-4.9) H 01/21/22 07:50 Total Protein 7.8 g/dL (6.6-8.7) 01/21/22 07:50 Albumin 4.3 g/dL (3.5-5.2) 01/21/22 07:50 Globulin 3.5 g/dL (1.3-4.6) 01/21/22 07:50 Vancomycin Trough 17.4 ug/mL (10-15) H 01/25/22 07:30 Vitals Last Vital Signs Temp 98.1 F 01/26/22 07:18 Pulse 79 01/26/22 11:56 Resp 18 01/26/22 11:56 BP 119/71 01/26/22 11:56 Pulse Ox 96 01/26/22 11:56 Discharge Plan Discharge Patient Disposition: Home Condition: Stable Prescriptions: New hydrocodone-acetaminophen 5-325 mg tablet 1 tab PO Q6H PRN (Reason: pain) Qty: 20 0RF Continued clindamycin HCl 300 mg capsule 300 mg PO BID@00,12 0RF albuterol sulfate 2.5 mg /3 mL (0.083 %) solution for nebulization 2.5 mg inhalation Q4H PRN (Reason: Shortness Of Breath) 0RF aspirin 81 mg Tablet,Delayed Release (Dr/Ec) 81 mg PO DAILY 0RF ondansetron 8 mg tablet,disintegrating 8 mg PO Q8H PRN (Reason: Nausea And Vomiting) 0RF oxycodone-acetaminophen 5-325 mg tablet 1 tab PO Q6H PRN (Reason: Pain) 0RF rifampin 300 mg capsule 300 mg PO BID@06,18 0RF Rx Instructions: for 7 days diclofenac sodium 75 mg tablet,delayed release (DR/EC) 75 mg PO BID@06,18 0RF Rx Instructions: for 7 days albuterol sulfate 90 mcg/actuation HFA aerosol inhaler 2 puff INHALATION Q4H PRN (Reason: Shortness Of Breath) 0RF doxycycline hyclate 100 mg tablet 100 mg PO BID 0RF Discharge Orders: Discharge Order (Routine); Ordered 01/26/22 Ordered By: Ulysses Morgan Other Ambulatory Orders: Miscellaneous Procedure (Order) Location: None Selected Ordered By: Ulysses Morgan Referrals: Ulysses Morgan MD [Physician] - 7-10 days (Please call Dr. Morgan's office to schedule a post procedure followup to be seen in 7 to 10 days. Thank you) OUTPATIENT SURGERY, [Staff Physician] - (You have been set up for wound care at outpatient services. Your appointment time is 07:30. Please check in at the medical office building on weekend days. Through the week, you may check in directly at surgical services. Please arrive at 07:15 for check-in. ) WOUND CARE CLINIC, [Staff Physician] - 4-7 days Patient Instructions: Hydrocodone/Acetaminophen (By mouth), Acute Wound Care (GEN), Hidradenitis Suppurativa (GEN), Opioid Safety Activity Restrictions/Additional Instructions: wet to dry once daily at GI lab starting tomorrow Discharge Attestations Time Spent in Discharge Care*: less than 30 min Quality Metrics Clinical Quality Measures [ No reported AMI, CVA or VTE this stay] Coding Level of Care Code Acute Chg FW DC note Diagnoses Status post incision and drainage Z98.890
== END 2022-01-26 13:00 | disposition home or self-care (01) | DRG 603 ==
LOC: ER 12:42 → MEDSURG 17:23
PROVIDERS: Internal Medicine; Physician Assistant; Admitting Provider Surgery; Emergency Provider Family Medicine; Visit Provider Surgery
PROC: 0X940ZX Drainage of Right Axilla, Open Approach, Diagnostic (ICD-10-PCS; principal; 2022-01-23 14:35)
DX: L02.411 Cutaneous abscess of right axilla (principal); L73.2 Hidradenitis suppurativa; J44.9 Chronic obstructive pulmonary disease, unspecified; Z79.82 Long term (current) use of aspirin
CPT/HCPCS: 36415; 76882; 80048; 80053; 80202; 84484; 85025; 86140; 87040; 87070; 87075; 87077; 87205; 88304; 93005; 94640; 96365; 96375; 99285; G0378; J0743; J1170; J1885; J2250; J2405; J2704; J3010; J3370; J3490; J7030; J7050

== ENCOUNTER 2022-01-29 07:32 | Outpatient (RCR) | payer MEDICAID, SELFPAY ==
[2022-01-27 07:35] VITALS: BP 148/96; PULSE 76; RESP 18; TEMP 36.6; O2SAT 100
--- NOTE | 2022-01-27 07:45 | PC.NURSE ---
Pt to GI lab for daily wet to dry dressing changes to right axilla wound. Procedure explained to patient and spouse. No questions voiced. Pt very anxious regarding dressing change due to previous pain with removal of packing. Pt stated she took her pain medication prior to coming in for procedure. Old dressing removed without difficulty. Pt tolerated removal of the packing poorly. Wound bed beefy red with good granulation tissue noted. Small amount serosang drainage noted. Wound packed wet to dry as ordered. Pt tolerated fair. at patient side to offer support.
--- NOTE | 2022-01-28 07:30 | PC.NURSE ---
Pt to GI lab for wet to dry dressing to right axilla. Old dressing removed with small amount serosang drainage noted. Wound bed beefy red with good granulation noted. Cleaned with NS. NS used to wet 2x2 and placed in wound bed. 4x4 and ABD pad placed over damp dressing. Secured with micropore tape. at pt side to offer support. Pt tolerated very well. Rated pain at 2 today. Both patient and very pleasant and easy to work with.
[2022-01-28 07:41] VITALS: BP 133/92; PULSE 78; RESP 18; TEMP 36.2; O2SAT 98
[2022-01-29 07:37] VITALS: BP 140/100; PULSE 80; RESP 18; TEMP 36.1; O2SAT 99
--- NOTE | 2022-01-29 07:45 | PC.NURSE ---
Pt to GI lab for wet to dry dressing change of right axilla wound. at pt side to offer support. Old dressing removed with small amount serosang drainage noted. Packing removed with patient tolerating very poorly. Pt states the wound mairano and stings following packing removal. Purpose of wet to dry dressing explained to patient. Pt states she did take her pain medication prior to arrival for dressing change. Wound bed beefy red with no slough noted. Good granulation apparent. Damp 2x2 gauze placed in wound bed and covered with folded 4x4 and ABD pad. Secured with Medipore tape. Pt did not tolerate dressing change very well today.
--- NOTE | 2022-01-29 14:28 | PC.NURSE ---
Pt set up at Wound Care Clinic with appointment 01/30/22 at 0830. Pt will miss dressing change in AM due to Wound Care appointment.
== END 2022-02-01 23:59 | disposition home or self-care (01) ==
LOC: GILAB 07:32
PROVIDERS: Visit Provider Surgery
DX: L02.411 Cutaneous abscess of right axilla (principal); L73.2 Hidradenitis suppurativa; Z98.890 Other specified postprocedural states

== ENCOUNTER → 2022-02-13 09:12 | Outpatient (BNVA) | payer MEDICAID, SELFPAY | PROVIDERS: Visit Provider Nurse Practitioner Family | DX: I96 Gangrene, not elsewhere classified (principal); L98.492 Non-pressure chronic ulcer of skin of other sites with fat layer exposed | CPT/HCPCS: 11042 ==

== ENCOUNTER → 2022-02-18 15:10 | Outpatient (BNVA) | payer MEDICAID, SELFPAY | PROVIDERS: Visit Provider Emergency Medicine | DX: I96 Gangrene, not elsewhere classified (principal); L98.492 Non-pressure chronic ulcer of skin of other sites with fat layer exposed | CPT/HCPCS: 11042 ==

== ENCOUNTER → 2022-02-20 09:16 | Outpatient (BNVA) | payer MEDICAID, SELFPAY | PROVIDERS: Visit Provider Nurse Practitioner Family | DX: I96 Gangrene, not elsewhere classified (principal); L98.492 Non-pressure chronic ulcer of skin of other sites with fat layer exposed | CPT/HCPCS: 11042 ==

== ENCOUNTER → 2022-02-27 09:16 | Outpatient (BNVA) | payer MEDICAID, SELFPAY | PROVIDERS: Visit Provider Nurse Practitioner Family | DX: I96 Gangrene, not elsewhere classified (principal); L98.492 Non-pressure chronic ulcer of skin of other sites with fat layer exposed | CPT/HCPCS: 11042 ==

== ENCOUNTER → 2022-03-06 09:58 | Outpatient (BNVA) | payer MEDICAID, SELFPAY | PROVIDERS: Visit Provider Nurse Practitioner Family | DX: L98.492 Non-pressure chronic ulcer of skin of other sites with fat layer exposed (principal); I96 Gangrene, not elsewhere classified | CPT/HCPCS: 87070; 87176; 87205 ==

== ENCOUNTER 2022-04-01 09:13 | Emergency (ER) | payer MEDICAID, SELFPAY ==
[2022-04-01] VITALS (10 sets, daily range): BP systolic 116–179; BP diastolic 69–97; PULSE 78–136; RESP 12–21; TEMP 36.7–36.9; O2SAT 95–99; BMI 31.7
--- NOTE | 2022-04-01 11:08 | US_ITS ---
WS: [id number] ULTRASOUND SOFT TISSUES LEFT axilla. HISTORY: abscess - L axilla COMPARISON: None available. TECHNIQUE: 2-D and color Doppler imaging is submitted. There is a complex superficial mass in the LEFT axilla. There is wall thickening with complex fluid i nfiltrating the soft tissues. There is increased vascularity. This elongated complex mass measures 5. 2 x 1.0 cm and most consistent with an abscess. US/US soft tissue/extremity 22764 IMPRESSION: Complex collection in the LEFT axilla consistent with an abscess.
--- NOTE | 2022-04-01 11:24 | ED_ITS ---
HPI - Wound/Laceration General: Chief Complaint: Wound/Laceration Stated Complaint: sent over for wound care Time Seen by Provider: 04/01/22 09:19 Source: patient Mode of arrival: ambulatory Limitations: no limitations History of Present Illness: 56-year-old female presents emergency room from wound care clinic. She has had difficulty with hidradenitis in the past she had recently had one in the right axilla that was incised and drained she has 1 that spontaneously started draining in the last she has some localized redness erythema no fever sweats or chills last few days she has been on some Bactrim seems to have been increasing in area around the wound. Time she arrived here she has ABD dressings on both axilla the one on the left has minimal drainage from it unable to express any drainage 1 on the right she has not to let us remove. Onset (ago): minute(s) Location: scalp Patient tetanus UTD: Yes Associated symptoms: Reports pain; Denies chills, fever(s), foreign body sensation, inability to move, nausea, numbness, syncope or vomiting Treatments prior to arrival: bandage and other (Oral antibiotics) Review of Systems Const: Denies: fever(s) or chills ENMT: Denies: throat pain, ear or mastoid pain, nasal discharge or nasal con gestion Card: Denies: chest pain, palpitations, irregular heart rhythm, edema or syncope Resp: Denies: dyspnea, productive cough or non-productive cough GI: Denies: nausea or vomiting : Denies: flank pain, difficulty voiding, dysuria, urinary frequency or urinary urgency Skin/Breast: Denies: rash or pruritus FORMERLY [facility], 1928–1983 ED PFSH: Surgical History S/P tonsillectomy and adenoidectomy Status post incision and drainage (01/23/22) Right axilla Social History Smoking and tobacco status: former smoker Physical Exam Const: ORIENTATION/CONSCIOUSNESS: Yes awake, Yes oriented to person, Yes oriented to place and Yes oriented to time HENMT: COMMON NORMALS: normocephalic, atraumatic and hearing grossly normal bilaterally HEAD & SCALP: normocephalic and atraumatic Neck/C-Spine: COMMON NORMALS: no JVD Resp: COMMON NORMALS: normal respiratory effort, No retractions, No use of a ccessory muscles and clear to auscultation bilaterally AUSCULTATION: clear to auscultation bilaterally Cardio: COMMON NORMALS: no JVD, regular rate, regular rhythm and No murmurs present (Cardio) RATE: regular rate RHYTHM: regular rhythm GI: COMMON NORMALS: Soft to palpation and No hepatosplenomegaly present AUSCULTATION: Yes normoactive bowel sounds PALPATION: Yes Soft to palpation, No Tenderness to palpation present (GI), No Guarding due to palpation present (GI) and Yes No hepatosplenomegaly present Extremity: COMMON NORMALS: normal to inspection, capillary refill normal, no clubbing, cyanosis or edema, no calf tenderness and no pedal edema Neuro: SENSORIUM/ORIENTATION: Yes oriented to person, Yes oriented to place and Yes oriented to time Skin: NARRATIVE SKIN EXAM: Significant scarring in both axilla from what appears to be previous hidradenitis. Looks like the area in the left has been incised there is an open wound to the mucousy eschar overlying it is very slightly indurated there is localized erythema without induration. Unable to express any drainage with palpation no apparent fluctuant areas. Limited exam on the right patient with not allow any further exam initially did not even want the bandage removed. Procedures Abscess I/D Side (if applicable): left Sedation/analgesia: fentanyl and other (Fentanyl and Ativan) Technique: incised with #11 blade Amount of fluid expressed (mL): 3 Packing used?: plain Procedural Sedation Indication: incision and drainage of abscess Fentanyl: IV Fentanyl dose (mcg): 50 Ketamine dose (mg): 200 Patient Tolerated Procedure: well Complications: none Additional Comments: Is a cannula oxygen was applied prior to start procedure patient tolerated well and hypoxia recovered without incident Course Vital Signs: Vital signs: Vital Signs Temperature 98.4 F 04/01/22 17:22 Pulse Rate 89 04/01/22 17:22 Respiratory Rate 16 04/01/22 17:22 Blood Pressure 131/81 04/01/22 17:22 Pulse Oximetry 97 04/01/22 17:22 MDM - Wound/Laceration Medical Decision Making Small amount of fluid drained on incision. There is a bridge of skin in the axilla from previous scarring probed this there is no evidence of fluid there. We will discharge patient home with oral antibiotic follow-up at the wound clinic. Medical Records I reviewed the patient's medical records. Lab Data I reviewed the patient's lab results. : 04/01/22 11:28 04/01/22 11:28 Radiology Impressions Soft Tissue Ultrasound 04/01/22 11:08 IMPRESSION: Complex collection in the LEFT axilla consistent with an abscess. Laboratory Results WBC 15.3 10^3/uL (4.0-10.0) H 04/01/22 11:28 RBC 4.11 10^6/uL (4.1-5.3) 04/01/22 11:28 Hgb 12.0 g/dL (11.5-15.3) 04/01/22 11:28 Hct 36.2 % (37.0-47.0) L 04/01/22 11:28 MCV 88.1 fl (81-99) 04/01/22 11:28 MCH 29.2 pg (28.0-34.0) 04/01/22 11:28 MCHC 33.1 g/dL (30.0-36.0) 04/01/22 11:28 RDW 15.5 % (12.1-15.1) H 04/01/22 11:28 Plt Count 331 10^3/cmm (130-400) 04/01/22 11:28 MPV 10.2 fL (7.4-10.4) 04/01/22 11:28 Neut % (Auto) 76.7 % 04/01/22 11:28 Lymph % (Auto) 15.6 % 04/01/22 11:28 [place] % (Auto) 6.1 % 04/01/22 11:28 Eos % (Auto) 0.8 % 04/01/22 11:28 Baso % (Auto) 0.5 % 04/01/22 11:28 Neut # (Auto) 11.75 10^3/uL (1.8-7.7) H 04/01/22 11:28 Lymph # (Auto) 2.4 10^3/uL (0.8-4.8) 04/01/22 11:28 [place] # (Auto) 0.9 10^3/uL (0.2-0.9) 04/01/22 11:28 Eos # (Auto) 0.1 10^3/uL (0.0-0.8) 04/01/22 11:28 Baso # (Auto) 0.1 10^3/uL (0.0-0.1) 04/01/22 11:28 Nucleated RBC % (auto) 0 % 04/01/22 11:28 Nucleated RBCs # 0.0 /100WBC 04/01/22 11:28 Sodium 137 mmol/L (136-145) 04/01/22 11:28 Potassium 4.7 mmol/L (3.5-5.1) 04/01/22 11:28 Chloride 101 mmol/L (98-107) 04/01/22 11:28 Carbon Dioxide 25 mmol/L (22-29) 04/01/22 11:28 Anion Gap 15.7 (5-19) 04/01/22 11:28 BUN 14 mg/dL (6-20) 04/01/22 11:28 Creatinine 0.7 mg/dL (0.5-0.9) 04/01/22 11:28 GFR Calculation 87.2 mL/min (90-130) L 04/01/22 11:28 Glucose 110 mg/dL (65-115) 04/01/22 11:28 Calculated Osmolality 285 mOsm/kg (285-295) 04/01/22 11:28 Calcium 9.6 mg/dL (8.5-10.5) 04/01/22 11:28 Total Bilirubin 0.2 mg/dL (0.15-1.2) 04/01/22 11:28 AST 18 U/L (0-32) 04/01/22 11:28 ALT 12 U/L (0-33) 04/01/22 11:28 Alkaline Phosphatase 82 IU/L (35-105) 04/01/22 11:28 Total Protein 7.8 g/dL (6.6-8.7) 04/01/22 11:28 Albumin 4.5 g/dL (3.5-5.2) 04/01/22 11:28 Globulin 3.3 g/dL (1.3-4.6) 04/01/22 11:28 Discharge Plan Discharge Patient Disposition: Home Clinical Impression: Axillary hidradenitis suppurativa, Status post incision and drainage Condition: Stable Prescriptions: New doxycycline hyclate 100 mg capsule 100 mg PO BID 10 Days Qty: 20 0RF hydrocodone-acetaminophen 5-325 mg tablet 1 tab PO Q6H PRN (Reason: pain) Qty: 15 0RF Discontinued sulfamethoxazole-trimethoprim [Bactrim DS] 800-160 mg tablet 1 tab PO BID 10 Days Qty: 20 0RF No Action tramadol 50 mg tablet 50 mg PO Q8H PRN (Reason: pain) Qty: 20 0RF albuterol sulfate 2.5 mg /3 mL (0.083 %) solution for nebulization 2.5 mg inhalation Q4H PRN (Reason: Shortness Of Breath) 0RF aspirin 81 mg Tablet,Delayed Release (Dr/Ec) 81 mg PO DAILY 0RF albuterol sulfate 90 mcg/actuation HFA aerosol inhaler 2 puff INHALATION Q4H PRN (Reason: Shortness Of Breath) 0RF Discharge Orders: Discharge ED (Routine); Ordered 04/01/22 Ordered By: Ravindra Bolden Patient Instructions: Opioid Safety Coding Level of Care Code ED Managed Services Consultant for Chg Fwd Exam Detailed
[2022-04-01 11:48] LABS: Basophils # 0.1 10^3/uL (0.0-0.1); Basophils % 0.5 %; Eosinophils # 0.1 10^3/uL (0.0-0.8); Eosinophils % 0.8 %; Hematocrit 36.2 % (37.0-47.0); Lymphocytes # 2.4 10^3/uL (0.8-4.8); Lymphocytes % 15.6 %; Mean Corpuscular HGB Conc 33.1 g/dL (30.0-36.0); Mean Corpuscular Hemoglobin 29.2 pg (28.0-34.0); Mean Corpuscular Volume 88.1 fl (81-99); Mean Platelet Volume 10.2 fL (7.4-10.4); Monocytes # 0.9 10^3/uL (0.2-0.9); Monocytes % 6.1 %; Neutrophils # 11.75 10^3/uL (1.8-7.7); Neutrophils % 76.7 %; Nucleated Red Blood Cells % 0 %; Platelet Count 331 10^3/cmm (130-400); Red Blood Count 4.11 10^6/uL (4.1-5.3); Red Cell Distribution Width 15.5 % (12.1-15.1); White Blood Count 15.3 10^3/uL (4.0-10.0)
[2022-04-01 12:08] LABS: Alanine Aminotransferase 12 U/L (0-33); Albumin Level 4.5 g/dL (3.5-5.2); Alkaline Phosphatase 82 IU/L (35-105); Aspartate Amino Transferase 18 U/L (0-32); Chloride 101 mmol/L (98-107); Glucose 110 mg/dL (65-115); Potassium 4.7 mmol/L (3.5-5.1); Sodium 137 mmol/L (136-145)
[2022-04-01] MEDS: vancomycin 1,000 MG in sodium chloride 0.9% 250 ML 250 MG IV (12:20)
[2022-04-01] MEDS: ondansetron 2 mg/ML SDV 2 mL 4 MG IVP (12:28)
[2022-04-01] MEDS: TRAMadol 50 mg Tablet PO (12:28)
[2022-04-01] MEDS: ketorolac 30 mg/mL INJ IVP (12:29)
[2022-04-01 12:45] LABS: Anion Gap 15.7 (5-19); Blood Urea Nitrogen 14 mg/dL (6-20); Calcium 9.6 mg/dL (8.5-10.5); Carbon Dioxide 25 mmol/L (22-29); Globulin 3.3 g/dL (1.3-4.6); Glomerular Filtration Rate 87.2 mL/min (90-130); Osmolality Calculated 285 mOsm/kg (285-295); Total Bilirubin 0.2 mg/dL (0.15-1.2); Total Protein 7.8 g/dL (6.6-8.7)
[2022-04-01] MEDS: fentaNYL 50 mcg/mL INJ 2mL IVP (13:49)
[2022-04-01] MEDS: LORazepam 2 mg/mL INJ 1 mL 1 MG IVP (14:01)
--- NOTE | 2022-04-01 16:00 | PC.NURSE ---
Sat pt up in bed, c/o feeling light headed and nauseated, resolved once sitting there for a few seconds. at at bedside
--- NOTE | 2022-04-07 10:12 | DCPLANNER ---
Addendum entered by Debbi Jacobs 04/28/22 12:33: Patient had a follow up appointment scheduled for 04.08.[address] Garcia at Wound Care - patient did attend appointment. Original Note: employment evaluator/case manager had message to schedule a follow up appointment for patient with Wound Care. employment evaluator/case manager sent patients information to the front office staff at Wound Care. Patients information will be printed and reviewed. Clinic will call patient with appointment information.
== END 2022-04-01 17:25 | disposition home or self-care (01) ==
PROVIDERS: Emergency Provider Family Medicine
DX: L73.2 Hidradenitis suppurativa (principal); Z79.82 Long term (current) use of aspirin; Z87.891 Personal history of nicotine dependence
CPT/HCPCS: 10060; 36415; 76882; 80053; 85025; 87040; 87070; 87075; 87205; 96365; 96375; 99152; 99284; J1885; J2060; J2405; J3010; J3370; J3490; J7050

== ENCOUNTER → 2022-04-08 08:40 | Outpatient (BNVA) | payer MEDICAID, SELFPAY | PROVIDERS: Visit Provider Emergency Medicine | DX: I96 Gangrene, not elsewhere classified (principal); L89.892 Pressure ulcer of other site, stage 2; L89.891 Pressure ulcer of other site, stage 1 | CPT/HCPCS: 11042; 11045 ==

== ENCOUNTER → 2022-04-24 09:39 | Outpatient (BNVA) | payer MEDICAID, SELFPAY | PROVIDERS: Visit Provider Nurse Practitioner Family | DX: Z01.89 Encounter for other specified special examinations (principal) | CPT/HCPCS: 87070; 87077; 87186 ==